=== PATIENT | female | born 1970 | race Caucasian/White ===

== ENCOUNTER 2022-03-03 23:04 | Emergency (ER) | payer OTHER ==
[2022-03-04 00:58] LABS: CORONAVIRUS COVID-19 NAA NEGATIVE (NEGATIVE)
[2022-03-04] MEDS ORDERED: Ibuprofen 600 MG Tab PO ONE (01:50)
[2022-03-04] MEDS ORDERED: Lidocaine 4% 1 each Patch TOP ONE (02:00)
[2022-03-04] MEDS ORDERED: Estradiol 0.5 MG Tab PO ONE (07:12)
[2022-03-04] MEDS ORDERED: Gabapentin 300 MG Cap PO ONE (07:13)
[2022-03-04] MEDS ORDERED: ClonazePAM 0.5 MG Tab PO ONE (07:14)
[2022-03-04] MEDS ORDERED: Losartan 50 MG Tab PO ONE (07:21)
== END 2022-03-04 07:46 ==
LOC: EEVIPCON 23:04 → JD.ED 23:04
DX: T58.92XA Toxic effect of carbon monoxide from unspecified source, intentional self-harm, initial encounter (principal); I10 Essential (primary) hypertension; J45.909 Unspecified asthma, uncomplicated; Z88.1 Allergy status to other antibiotic agents; Z79.899 Other long term (current) drug therapy; Z20.822 Contact with and (suspected) exposure to COVID-19
CPT/HCPCS: 0240U; 36415; 80053; 80143; 80179; 80306; 80307; 81001; 82375; 84443; 84484; 85025; 93005; 99285; A9270; 93010